=== PATIENT | female | born 1970 | race Caucasian/White ===

== ENCOUNTER 2016-07-27 15:12 | Emergency (ER) | payer OTHER ==
[2016-07-27 15:26] VITALS: BP 124/76; PULSE 60; RESP 16; TEMP 98.2; O2SAT 97
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
== END 2016-07-27 16:27 | disposition home or self-care (01) ==
LOC: CED 15:12
DX: S16.1XXA Strain of muscle, fascia and tendon at neck level, initial encounter (principal); V44.0XXA Car driver injured in collision with heavy transport vehicle or bus in nontraffic accident, initial encounter
CPT/HCPCS: 99203-PO; G0463-PO